=== PATIENT | female | born 1950 | race Caucasian/White ===

== ENCOUNTER → 2017-12-28 | Outpatient (CLI) | payer MEDICARE, BC ==
--- NOTE | 2017-12-31 10:06 | MM ---
Reason for exam: screening (asymptomatic). Last mammogram was performed 2 years and 2 months ago. History: Patient is postmenopausal. Physical Findings: A clinical breast exam by your physician is recommended on an annual basis and results should be correlated with mammographic findings. MG Screening Mammo w CAD Bilateral CC and MLO view(s) were taken. Prior study comparison: October 21, 2015, right breast MG work up mamm w CAD RT. October 14, 2015, bilateral MG screening mammo w CAD. The breast tissue is heterogeneously dense. This may lower the sensitivity of mammography. There is no discrete abnormality. No significant changes when compared with prior studies. ASSESSMENT: Negative, BI-RAD 1 RECOMMENDATION: Routine screening mammogram of both breasts in 1 year.
== END | disposition home or self-care (01) ==
LOC: RADMAMWWP 08:23
PROVIDERS: ATTEND Internal Medicine Geriatric Medicine
DX: Z12.31 Encounter for screening mammogram for malignant neoplasm of breast (principal)
CPT/HCPCS: 77067

== ENCOUNTER → 2018-01-10 | Outpatient (CLI) | payer MEDICARE, BC ==
--- NOTE | 2018-01-10 12:57 | BD ---
EXAMINATION TYPE: Axial Bone Density DATE OF EXAM: 01/10/2018 COMPARISON: 10.14.2015 DEXA bone scan. CLINICAL HISTORY: 67 YR OLD FEMALE.....ICD-10 CODE: M81.0 AGE RELATED OSTEOPOROSIS Height: 60.5 Weight: 117 FRAX RISK QUESTIONS: NOTHING TO NOTE HERE RISK FACTORS HISTORY OF: Active: YES Postmenopausal woman: YES AT 48 YRS OLD MEDICATIONS: Osteoporosis Medications: ALENDRONATE, FOR ABOUT 2 YRS Additional Medications: BP MEDS, BUSPAR, TUMS, MULTIVITAMIN Additional History: NOTHING ADDITIONAL TO NOTE HERE EXAM MEASUREMENTS: Bone mineral densitometry was performed using the [employer]. Bone mineral density as measured about the Lumbar spine is: ----- L1-L4(G/cm2): 1.111 T Score Values are as follows: ----- L1: -0.6 ----- L2: -0.3 ----- L3: -0.4 ----- L4: -1.1 ----- L1-L4: -0.6 Bone mineral density has: Increased 5.9% since study of: 10.14.2015 Bone mineral density about the R hip (g/cm2): 0.733 Bone mineral density about the L hip (g/cm2): 0.739 T Score values are as follows: -----R Neck: -2.9 -----L Neck: -2.4 -----R Total: -2.2 -----L Total: -2.1 Bone mineral density has: Increased 6.8% since study of: 10.14.2015 FRAX%s: THERE IS 16.6% CHANCE FOR A MAJOR OSTEOPOROTIC FX AND A 5.3% FOR HIP FX.....PROBABILITY O F FX IN 10 YRS TIME IMPRESSION: Osteoporosis (T Score less than -2.5) persists femoral neck level right hip. There remains increased fracture risk and therapy is usually indicated based on age. Re-Screen 1-2 years. NOTE: T-SCORE=SD OF THE YOUNG ADULT MEAN.
== END | disposition home or self-care (01) ==
LOC: RADBDWWP 11:09
PROVIDERS: ATTEND Internal Medicine Geriatric Medicine
DX: M81.0 Age-related osteoporosis without current pathological fracture (principal)
CPT/HCPCS: 77080